=== PATIENT | female | born 1955 | race Caucasian/White ===

== ENCOUNTER 2017-10-18 18:01 | Emergency (ER) | payer MEDICARE, OTHER ==
[~2017-10-18] VITALS: Ht 154.9 cm; Wt 77.0 kg
[2017-10-18 18:05] VITALS: BP 144/87
[2017-10-18] MEDS ORDERED: LORazepam 2 mg/ml vial IM ONE (19:10)
== END 2017-10-18 19:57 | disposition home or self-care (01) ==
LOC: ER 18:02
DX: F41.9 Anxiety disorder, unspecified (principal); Z88.2 Allergy status to sulfonamides; Z88.0 Allergy status to penicillin
CPT/HCPCS: 96372; 99284; J2060

== ENCOUNTER 2021-04-25 16:36 | Emergency (ER) | payer MEDICARE, MEDICAID ==
[~2021-04-25] VITALS: Ht 152.4 cm; Wt 72.7 kg
[2021-04-25 16:49] VITALS: BP 148/76
[2021-04-25] MEDS ORDERED: BUDE10.2 INH (18:34)
[2021-04-25] MEDS ORDERED: BENZ-16 PO (18:34)
== END 2021-04-25 19:01 | disposition home or self-care (01) ==
LOC: ER 16:38
DX: R05.9 Cough, unspecified (principal); R06.02 Shortness of breath; Z88.0 Allergy status to penicillin; Z88.2 Allergy status to sulfonamides; Z79.899 Other long term (current) drug therapy; Z20.822 Contact with and (suspected) exposure to COVID-19
CPT/HCPCS: 71045; 87635; 99284; C9803